=== PATIENT | female | born 1960 | race Caucasian/White ===

== ENCOUNTER 2021-02-07 16:16 | Outpatient (CLI) | payer BC, SELFPAY ==
--- NOTE | ~2021-02-07 | MM_ITS ---
EXAMINATION: MM screening [facility] BI w shiela HISTORY: Screening TECHNIQUE: Craniocaudal and mediolateral oblique 3-D tomosynthesis images were obtained and synthetic 2-D images were generated. CAD analysis was submitted and interpreted. COMPARISON: Comparison to multiple prior studies sequentially, with oldest reviewed study dated 09/14. BREAST PARENCHYMAL COMPOSITION: The breasts are extremely dense, which lowers the sensitivity of mamm ography. FINDINGS: There is no evidence of suspicious mass, calcification, or architectural distortion to sugg est malignancy in either breast. There has been no suspicious interval change. IMPRESSION: 1. No mammographic evidence of malignancy. 2. Recommend routine screening mammography in one year. BI-RADS Category 1: Negative Reviewed, dictated and finalized at location A.
== END 2021-02-07 16:17 | disposition home or self-care (01) ==
LOC: ANHIMG 16:18
PROVIDERS: Visit Provider Obstetrics & Gynecology Gynecology
DX: Z12.31 Encounter for screening mammogram for malignant neoplasm of breast (principal)
CPT/HCPCS: 77063; 77067

== ENCOUNTER → 2022-02-27 11:02 | Outpatient (CLI) | payer BC, SELFPAY ==
--- NOTE | ~2022-02-27 | XR_ITS ---
EXAMINATION: XR lumbar spine 2-3V DATE: 02/27/2022 11:52 INDICATION: Low back pain. TECHNIQUE: 3 views of lumbar spine standing were obtained. COMPARISON: None. FINDINGS: There is 6 degrees dextrocurvature of lumbar spine. Vertebral body heights and intervertebr al disc heights are normal. There are endplate osteophytes at multiple levels. There is multilevel mi ld facet joint osteoarthritis. IMPRESSION: 1. Mild lumbar spondylosis. Reviewed, dictated and finalized at location A. IMPRESSION: 1. Mild lumbar spondylosis.
--- NOTE | ~2022-02-27 | XR_ITS ---
EXAMINATION: XR pelvis 1-2V DATE: 02/27/2022 11:52 INDICATION: Sacroiliac joint pain. Low back pain. TECHNIQUE: An anteroposterior view of the pelvis was obtained. COMPARISON: None. FINDINGS: Bone alignment is normal. No fracture. There is mild osteoarthritis of left sacroiliac join t and the hip joints. No evidence of inflammatory arthropathy. IMPRESSION: 1. Mild polyarticular osteoarthritis. Reviewed, dictated and finalized at location A.
== END ==
PROVIDERS: PCP Chiropractor; Visit Provider Chiropractor
DX: M16.0 Bilateral primary osteoarthritis of hip (principal); M53.3 Sacrococcygeal disorders, not elsewhere classified; M47.896 Other spondylosis, lumbar region
CPT/HCPCS: 72100; 72170

== ENCOUNTER 2024-02-13 10:25 | Outpatient (CLI) | payer OTHER, SELFPAY ==
--- NOTE | ~2024-02-13 | XR_ITS ---
XR hand LT min 3V Ordering provider: Brennen Armendariz, DC [facility] History: . L HAND PAIN . Comparison: None. FINDINGS: BONES: No acute fracture or dislocation. JOINT SPACES: Well maintained. SOFT TISSUES: Unremarkable. IMPRESSION: No acute osseous abnormality left hand. Reviewed, dictated and finalized at location A.
== END 2024-02-13 10:26 ==
PROVIDERS: PCP Chiropractor; Visit Provider Chiropractor
DX: M79.645 Pain in left finger(s) (principal)
CPT/HCPCS: 73130